=== PATIENT | female | born 1990 | race Hispanic/Latino ===

== ENCOUNTER 2021-03-02 16:32 | Emergency (ER) | payer BC ==
[2021-03-02] MEDS ORDERED: predniSONE 20 MG TAB ONE (17:07)
[2021-03-02] MEDS ORDERED: Ibuprofen 200 MG TAB ONE (17:07)
== END 2021-03-02 17:10 | disposition home or self-care (01) ==
LOC: NAV ERS 16:32
DX: J30.9 Allergic rhinitis, unspecified (principal); J06.9 Acute upper respiratory infection, unspecified
CPT/HCPCS: 99283; J7512